=== PATIENT | male | born 1940 | race Caucasian/White ===

== ENCOUNTER 2018-06-30 05:08 | Inpatient (IN) ==
[2018-06-22 10:55] LABS: HEMATOCRIT 41.6 % (42.0-52.0); MCH 30.6 PG (27-31); MCHC 33.7 g/dL (33-37); MPV 10.2 FL (7.4-10.4); RBC 4.57 XMIL (4.7-6.1); RDW 13.6 % (11.5-14.5); WBC 9.56 X1000 (4.8-10.8)
[2018-06-22 11:20] LABS: CALCIUM 9.3 mg/dL (8.8-10.2); CREATININE 1.2 mg/dL (0.7-1.2); POTASSIUM 4.6 mmol/L (3.5-5.1)
[2018-06-30] MEDS ORDERED: KEFZOL 1 GM/D5W 1 GM/50 ML IVPB ONE (05:57)
[2018-06-30] MEDS ORDERED: LR 1,000 ML ONE (05:57)
[2018-06-30] MEDS ORDERED: DIPRIVAN 1% ONE (06:35)
[2018-06-30] MEDS ORDERED: SODIUM CHLORIDE 0.9% 10 ML ONE (06:38)
[2018-06-30] MEDS ORDERED: NORCURON ONE (06:38)
[2018-06-30] MEDS ORDERED: QUELICIN (DOSE) ONE (06:38)
[2018-06-30] MEDS ORDERED: XYLOCAINE-MPF 2% ONE (06:38)
[2018-06-30] MEDS ORDERED: INVANZ 1 GM/NS 1 GM/50 ML IVPB ONE (06:45)
[2018-06-30] MEDS ORDERED: EPHEDRINE ONE (07:31)
[2018-06-30] MEDS ORDERED: ZOFRAN ONE (07:41)
[2018-06-30] MEDS ORDERED: DILAUDID ONE (07:59)
[2018-06-30] MEDS ORDERED: OFIRMEV 1000 MG/ISOTONIC SOLN 1,000 MG/100 ML BOTTLE ONE (07:59)
[2018-06-30 08:09] LABS: URINE SOURCE CATH
[2018-06-30 08:17] LABS: BILIRUBIN URINE NEGATIVE (NEGATIVE); BLOOD URINE NEGATIVE (NEGATIVE); COLOR YELLOW; GLUCOSE URINE NEGATIVE (NEGATIVE); KETONE URINE NEGATIVE (NEGATIVE); LEUKOCYTES URINE NEGATIVE (NEGATIVE); NITRITE URINE NEGATIVE (NEGATIVE); PH URINE 5.5; PROTEIN URINE NEGATIVE (NEGATIVE); SP GRAVITY URINE 1.003; TURBIDITY URINE CLEAR (CLEAR); UR EPITHELIAL CELLS <10 /HPF (<10); URINE BACTERIA NEGATIVE /HPF; URINE RBC <10 /HPF (<10); URINE WBC <10 /HPF (<10); UROBILINOGEN URINE NORMAL (NORMAL)
[2018-06-30] MEDS ORDERED: ROBINUL ONE (09:42)
[2018-06-30] MEDS ORDERED: TORADOL ONE (10:13)
[2018-06-30] MEDS ORDERED: D5 1/2 NS + KCL 20 MEQ 1,000 ML ONE (10:14)
[2018-06-30] MEDS: MORPHINE IV PRN (11:43)
[2018-06-30] MEDS: D5 1/2 NS + KCL 20 MEQ 1,000 ML IV SCH ×2 (11:45→21:59)
--- NOTE | 2018-06-30 12:04 | OPERATIVE NOTE ---
PROCEDURE DATE: 06/30/2018 PREOPERATIVE DIAGNOSIS: Acute complicated sigmoid diverticulitis requiring resection and end- descending colostomy. POSTOPERATIVE DIAGNOSIS: Acute complicated sigmoid diverticulitis requiring resection and end- descending colostomy. PRINCIPLE PROCEDURE: Colostomy takedown with resection of a segment of colon. SURGEON: Roro Olea MD. CONVERTIBLE POWER SHOVEL OPERATOR: Truong Richardson MD. ANESTHESIA: General. ESTIMATED BLOOD LOSS: 100 mL. DRAINS: None. 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 He has regained his strength, appetite and health over the last year and he wanted a colostomy takedown. FINDINGS: We resected the area of colon that was within the soft tissue, left side of abdomen and the ostomy itself and performed an end-to-end EEA stapled anastomosis between the descending colon and the rectum. We felt the surgery went well. No other intraabdominal pathology was noted. DESCRIPTION OF PROCEDURE: Prior to presenting to a.m. admission surgery this morning he underwent a bowel prep yesterday. He was taken to the operating room, where he received general anesthesia, and was intubated. Whipple catheter tube was placed. He was placed in the [facility]. I closed his ostomy with a pursestring 2-0 Prolene stitch. We used an Ioban on the skin after it was prepped. He received IV Invanz prophylactically. I began the procedure by making elliptical incision which encompassed the left-sided ostomy with a 10 blade scalpel. Then I used cautery to dissect out the end-colostomy from the anterior abdominal wall. I then made my midline incision in the previous scar. It went around the umbilicus and down to the pubic bone. Again, I used the cautery to transect the soft tissue and I carefully entered the abdomen so as not to injure any of the bowel. I took time to lyse all adhesions between loops of small bowel. I removed all small bowel from the pelvis. I freed what remained of the ostomy up against the left anterior abdominal wall. I felt I had enough length of colon to bring it down to the rectum. I ran the entire small bowel. All adhesions were lysed using sharp dissection and the bowel was placed back in its anatomically correct position, and I brought the descending colon along the left side of the abdomen. I took time using a right angle and forceps and the cautery to clean the rectal stump which was easily identified. I then used a pursestring instrument and created a pursestring about 2 inches proximal to our ostomy site on the descending colon. I transected the ostomy and a segment of the colon using Walls scissors and the pursestring was proximal. I used Allis clamps to hold open the descending colon and I sized the colon and chose a 31 mm EEA stapler. I placed the EEA in our descending colon and tied the pursestring around it. Again, I took time to remove any soft tissue from around our EEA stapler. At this point, I stayed at the abdomen and Dr. Matthew Richardson went below and placed the EEA stapler into the anus and rectum and directed it to the stapled rectal stump. The spike was brought out, I mated the anvil and the spike and Dr. Richardson brought the anvil down to the EEA stapler and fired it. Our donuts were intact except it was thin on the descending colon side and I felt it was thin on the anterior wall of our EEA anastomosis and I reinforced that anterior wall with interrupted 3-[address] Richardson placed a rigid proctoscope into the rectum and blew air across our anastomosis and there was no air leak. I inspected the EEA anastomosis. It was felt to be intact. I felt I had good blood supply at the rectum and the descending colon. We felt there was no significant tension on our EEA anastomosis. We took time to thoroughly irrigate out the pelvis with warm irrigation. It was removed with suction. I placed the bowel back in the anatomically correct position and what was left of the omentum was placed over the surface of the bowel. I then closed the ostomy site in 2 layers. I closed the posterior fascia with a running #1 Maxon stitch and I closed the anterior fascia in the ostomy site. Again, with a running #1 Maxon stitch. I then closed the midline incision with a running #1 Maxon stitch. I thoroughly irrigated our subcutaneous tissue from both our incisions and then the skin was closed with a skin clip marine railway operator. Dressings were applied. We will leave the Whipple catheter tube. We did not leave an NG tube. Plans are for him to go the recovery room and then be hospitalized. I spoke with his family after the procedure. Dr. Matthew Richardson was present throughout the case. His presence was necessary for retraction and exposure. Also help with dissection and he placed the EEA stapler into the rectum while I was above so that we could do the EEA anastomosis. He was also present during closure of our incision sites. cc: Roro Olea MD
[2018-06-30] MEDS: TORADOL IV SCH ×2 (15:35→21:53)
[2018-06-30] MEDS: OFIRMEV 1000 MG/ISOTONIC SOLN 1,000 MG/100 ML BOTTLE IV SCH ×2 (15:36→21:54)
[2018-06-30] MEDS: LIPITOR PO SCH (21:53)
[2018-06-30] MEDS: PERIDEX MT SCH (21:54)
[2018-06-30] MEDS: TRAVATAN 0.004% OPH SOLN OPH SCH (21:55)
[2018-07-01] MEDS: OFIRMEV 1000 MG/ISOTONIC SOLN 1,000 MG/100 ML BOTTLE IV SCH ×4 (03:15→22:00)
[2018-07-01] MEDS: TORADOL IV SCH ×4 (03:15→22:00)
[2018-07-01] MEDS: ALDACTONE PO SCH (09:15)
[2018-07-01] MEDS: PRILOSEC PO SCH (09:16)
[2018-07-01] MEDS: ZIAC 5/6.25 MG PO SCH (09:16)
[2018-07-01] MEDS: FLOMAX PO SCH (09:16)
[2018-07-01] MEDS: IMDUR PO SCH (09:16)
[2018-07-01] MEDS: PERIDEX MT SCH ×2 (09:17→22:00)
[2018-07-01] MEDS: TRUSOPT 2% OPH SOLN OPH SCH (09:17)
[2018-07-01] MEDS: LASIX PO SCH (09:20)
[2018-07-01] MEDS: MORPHINE IV PRN (11:27)
[2018-07-01] MEDS: D5 1/2 NS + KCL 20 MEQ 1,000 ML IV SCH ×2 (12:07→12:08)
--- NOTE | 2018-07-01 17:06 | PROGRESS NOTE ---
DATE: 07/01/2018 SUBJECTIVE: Mr. Estrada is now postop day 1 from a colostomy takedown. Overall, I think he is doing well. He still has a Whipple catheter tube in. He is still receiving IV fluids and I have not fed him. OBJECTIVE: Abdomen: His midline incision is intact. His abdomen is mostly soft. His pain is appropriate for his midline incision. General: He is awake and cooperative. Vital signs: His heart rate is 67, blood pressure 112/65, O2 saturation 98%. His T-max was a 100.0 degrees. He is on no antibiotics. PLAN: Will begin clear liquids tomorrow and plan to discontinue his Whipple catheter tube. We did not get any laboratory data today and will follow his clinical course. cc: Roro Olea MD
[2018-07-01] MEDS: LIPITOR PO SCH (22:00)
[2018-07-01] MEDS: TRAVATAN 0.004% OPH SOLN OPH SCH (22:01)
[2018-07-02] MEDS: D5 1/2 NS + KCL 20 MEQ 1,000 ML IV SCH ×2 (02:51→17:17)
[2018-07-02] MEDS: OFIRMEV 1000 MG/ISOTONIC SOLN 1,000 MG/100 ML BOTTLE IV SCH ×4 (02:51→20:57)
[2018-07-02] MEDS: TORADOL IV SCH ×4 (02:51→20:58)
[2018-07-02] MEDS: IMDUR PO SCH (08:59)
[2018-07-02] MEDS: TRUSOPT 2% OPH SOLN OPH SCH (08:59)
[2018-07-02] MEDS: PRILOSEC PO SCH (08:59)
[2018-07-02] MEDS: ALDACTONE PO SCH (08:59)
[2018-07-02] MEDS: FLOMAX PO SCH (08:59)
[2018-07-02] MEDS: ZIAC 5/6.25 MG PO SCH (08:59)
[2018-07-02] MEDS: PERIDEX MT SCH ×2 (09:09→20:56)
[2018-07-02] MEDS: LASIX PO SCH (09:09)
[2018-07-02] MEDS: ULTRAM PO PRN (20:56)
[2018-07-02] MEDS: TRAVATAN 0.004% OPH SOLN OPH SCH (20:56)
[2018-07-02] MEDS: LIPITOR PO SCH (20:57)
[2018-07-03] MEDS: TORADOL IV SCH (03:04)
[2018-07-03] MEDS: OFIRMEV 1000 MG/ISOTONIC SOLN 1,000 MG/100 ML BOTTLE IV SCH (03:05)
[2018-07-03] MEDS: D5 1/2 NS + KCL 20 MEQ 1,000 ML IV SCH ×2 (03:05→09:03)
--- NOTE | 2018-07-03 07:48 | PROGRESS NOTE ---
DATE: 07/03/2018 SUBJECTIVE: Mr. Estrada is now postop day 3 from a colostomy takedown. We removed his Whipple catheter tube yesterday and he was able to void. He has tolerated some clear liquids. He has had some flatus. OBJECTIVE: His heart rate is 60, blood pressure 138/76, O2 saturation 99% nasal cannula O2. He is afebrile on no antibiotics. He has been good about getting up in a chair and even walking the halls. PLAN: We will advance his diet. We will decrease his IV fluids and plan not to restart an IV if it infiltrates. We will stop his Toradol and IV Tylenol and give him p.o. pain medicine, [place] 10 or Ultram. His diet is a heart healthy diet. cc: Roro Olea MD
[2018-07-03] MEDS: TRUSOPT 2% OPH SOLN OPH SCH (08:43)
[2018-07-03] MEDS: PRILOSEC PO SCH (09:01)
[2018-07-03] MEDS: ALDACTONE PO SCH (09:02)
[2018-07-03] MEDS: IMDUR PO SCH (09:02)
[2018-07-03] MEDS: ZIAC 5/6.25 MG PO SCH (09:02)
[2018-07-03] MEDS: PERIDEX MT SCH ×2 (09:02→20:02)
[2018-07-03] MEDS: FLOMAX PO SCH (09:02)
[2018-07-03] MEDS: LASIX PO SCH (09:02)
[2018-07-03] MEDS: TRAVATAN 0.004% OPH SOLN OPH SCH (20:03)
[2018-07-03] MEDS: ULTRAM PO PRN (20:03)
[2018-07-03] MEDS: LIPITOR PO SCH (20:03)
[2018-07-03] MEDS: NORCO-10 PO PRN (23:09)
[2018-07-04] MEDS: D5 1/2 NS + KCL 20 MEQ 1,000 ML IV SCH (04:23)
[2018-07-04] MEDS: IMDUR PO SCH (08:37)
[2018-07-04] MEDS: LASIX PO SCH (08:37)
[2018-07-04] MEDS: ALDACTONE PO SCH (08:37)
[2018-07-04] MEDS: PRILOSEC PO SCH (08:37)
[2018-07-04] MEDS: FLOMAX PO SCH (08:37)
[2018-07-04] MEDS: ZIAC 5/6.25 MG PO SCH (08:38)
[2018-07-04] MEDS: PERIDEX MT SCH (08:38)
[2018-07-04] MEDS: TRUSOPT 2% OPH SOLN OPH SCH (08:44)
[2018-07-04] MEDS ORDERED: LOVENOX SUBQ SCH (09:30)
[2018-07-04 10:57] LABS: AGAP 10; BUN 20 mg/dL (8-22); CALCIUM 9.1 mg/dL (8.8-10.2); CHLORIDE 100 mmol/L (98-107); COSMO 273; CREATININE 1.1 mg/dL (0.7-1.2); ESTIMATED GFR > 60; GLUCOSE 108 mg/dL (70-104); POTASSIUM 4.5 mmol/L (3.5-5.1); SODIUM 135 mmol/L (136-145); TCO2 25 mmol/L (25-35)
[2018-07-04 11:06] LABS: BASO# 0.03 X1000 (0.0-0.2); BASO% 0.3 % (0.0-0.8); EOS# 0.14 X1000 (0.0-0.7); EOS% 1.6 % (0.0-10.0); HEMATOCRIT 38.4 % (42.0-52.0); HEMOGLOBIN 12.9 g/dL (14.0-18.0); LYMPH# 1.07 X1000 (1.2-3.4); LYMPH% 12.3 % (20.5-51.1); MCH 30.6 PG (27-31); MCHC 33.6 g/dL (33-37); MCV 91.2 FL (81-99); MONO# 0.71 X1000 (0.11-0.59); MONO% 8.2 % (1.7-9.3); MPV 10.5 FL (7.4-10.4); NEUT# 6.75 X1000 (1.4-6.5); NEUT% 77.6 % (42.2-75.2); PLT 283 X1000 (130-400); RBC 4.21 XMIL (4.7-6.1); RDW 13.1 % (11.5-14.5)
[2018-07-04] MEDS: ULTRAM PO PRN (16:47)
[2018-07-05] MEDS: PERIDEX MT SCH ×2 (00:43→09:30)
[2018-07-05] MEDS: TRAVATAN 0.004% OPH SOLN OPH SCH (00:43)
[2018-07-05] MEDS: LIPITOR PO SCH (00:43)
[2018-07-05] MEDS: NORCO-10 PO PRN (00:44)
--- NOTE | 2018-07-05 03:19 | GENERAL SURGERY PROGRESS NOTE ---
DATE: 07/04/2018 SUBJECTIVE: Doing well. His bowels are functioning. Hemodynamically, he has been stable with no tachycardia. He is tolerating p.o. OBJECTIVE: Abdomen is soft. Incision is intact. Reviewed labs. White count is 8, hematocrit is 38. Creatinine is 1.1. ASSESSMENT AND PLAN: A 78-year-old gentleman status post colostomy reversal. He is on intravenous fluids. He is on his appropriate home medications and he is on prophylactic Lovenox. Plan for possible home tomorrow versus Friday. cc: MD Roro Cuevas MD
[2018-07-05] MEDS: IMDUR PO SCH (09:30)
[2018-07-05] MEDS: FLOMAX PO SCH (09:31)
[2018-07-05] MEDS: LASIX PO SCH (09:31)
[2018-07-05] MEDS: ALDACTONE PO SCH (09:31)
[2018-07-05] MEDS: PRILOSEC PO SCH (09:32)
[2018-07-05] MEDS: TRUSOPT 2% OPH SOLN OPH SCH (09:33)
[2018-07-05] MEDS: ZIAC 5/6.25 MG PO SCH (09:34)
[2018-07-05 11:30] VITALS: BP 112/68
--- NOTE | 2018-07-05 15:47 | GENERAL SURGERY PROGRESS NOTE ---
DATE: 07/05/2018 SUBJECTIVE: He is doing well. He had a bowel movement this morning. Pain is controlled. He is tolerating a diet. No fevers. No tachycardia. OBJECTIVE: Vital signs: Blood pressure 112/68, oxygen saturation is 97%. General: He is alert. Abdomen: Soft. Incision is intact. DIAGNOSTIC STUDIES: No new labs this morning, but they were appropriate yesterday. ASSESSMENT AND PLAN: A 78-year-old gentleman status post colostomy reversal by Dr. Olea. He is doing well. We will let him go home today. I have given him postoperative instructions. He will see Dr. Olea this week for staple removal. I have given him prescriptions for Weston, Colace, and Zofran. He will call with any problems. cc: MD Roro Cuevas MD
--- NOTE | 2018-07-17 04:45 | DISCHARGE SUMMARY ---
ADMISSION DATE: 06/30/2018 DISCHARGE DATE: 07/05/2018 ADMITTING DIAGNOSIS: Complicated diverticular abscess status post sigmoid colon resection with end colostomy. POSTOPERATIVE DIAGNOSIS: Complicated diverticular abscess status post sigmoid colon resection with end colostomy. PRINCIPAL PROCEDURE: Colostomy takedown 06/30/2018. DISCHARGE DISABILITY: Full. DISCHARGE MEDICATIONS: He is to return to his home medications. DISCHARGE DIET: Regular. DISCHARGE DISPOSITION: He will follow up in our outpatient offices. 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 He underwent a sigmoid colon resection with end colostomy and Channing's pouch. I followed him as an outpatient over the last year, and he wants his colostomy reversed. Prior to his presentation, he underwent a bowel prep at home. He presented on the day of surgery and underwent a colostomy takedown with a 31 mm EEA stapled anastomosis. No drains were left at the time of surgery. He did have a Whipple catheter tube in place. We did not use an NG tube and after surgery, he went to the recovery room and then to the [address] [place] [address] [facility]. We feel that his postoperative convalescence has been normal. We discontinued his Whipple catheter tube. On postop day 2, we were able to slowly advance his diet, and Dr. Matthew Richardson was covering for me over the weekend and discharged him to his home on 07/05/2018 under the care of his . At discharge, his wound was healing well. He was having some bowel activity. He was steady on his feet and able to ambulate in the ALLERGIES:, and was tolerating a diet. It was felt safe to discharge him home with followup in our outpatient offices in 7 days. cc: Roro Olea MD
== END 2018-07-05 14:17 | disposition home or self-care (01) | DRG 346 ==
LOC: SURHOLD 05:08 → 4N 08:18
PROVIDERS: ADMIT Surgery; ATTEND Surgery
CPT/HCPCS: 80048; 81001; 83735; 85025; 85027; 88304; 94761; 94799; A9270; C1751; J0131; J0330; J0690; J1170; J1335; J1650; J1885; J2270; J2405; J3480; J7120

== ENCOUNTER 2019-08-10 00:22 | Inpatient (IN) ==
[2019-08-10 01:46] LABS: BASO# 0.03 X1000 (0.0-0.2); BASO% 0.2 % (0.0-0.8); EOS% 0.8 % (0.0-10.0); HEMOGLOBIN 14.2 g/dL (14.0-18.0); IMM GRAN# 0.04 X1000 (0.0-0.04); IMM GRAN% 0.3 % (0.0-0.5); LYMPH# 1.62 X1000 (1.2-3.4); LYMPH% 12.8 % (20.5-51.1); MCH 29.8 PG (27-31); MCHC 33.8 g/dL (33-37); MCV 88.2 FL (81-99); MONO# 0.62 X1000 (0.11-0.59); MONO% 4.9 % (1.7-9.3); MPV 10.4 FL (7.4-10.4); NEUT# 10.27 X1000 (1.4-6.5); PLT 261 X1000 (130-400); RBC 4.76 XMIL (4.7-6.1); RDW 14.3 % (11.5-14.5); WBC 12.68 X1000 (4.8-10.8)
[2019-08-10 02:02] LABS: ALB/GLOB RATIO 1.3; CALCIUM 9.5 mg/dL (8.8-10.2); CREATININE 1.3 mg/dL (0.7-1.2); POTASSIUM 4.8 mmol/L (3.5-5.1); TOTAL BILIRUBIN 0.44 mg/dL (0.20-1.00); TOTAL PROTEIN 7.1 g/dL (6.3-8.3)
[2019-08-10] MEDS ORDERED: ZOFRAN IV ONE (03:39)
--- NOTE | 2019-08-10 03:39 | PROVIDER DOCUMENTATION ---
HPI-Abdominal Pain/GI Problem - General Chief Complaint: Abdominal Pain Stated Complaint: ABD PAIN Time Seen by Provider: 08/10/19 02:18 Source: patient Allergies/Adverse Reactions: Patient Allergies Allergy/AdvReac Type Severity Reaction Status Date / Time No Known Allergies Allergy Verified 08/10/19 05:33 Home Medications: Home Medication List Medication Instructions Recorded Confirmed Last Taken Type Aspirin 81 mg PO DAILY 06/08/13 08/10/19 06/27/18 08:00 History Atorvastatin Calcium [Lipitor] 40 mg PO QHS 03/14/15 08/10/19 06/29/18 22:00 History Multivitamin [Multivitamins] 1 each PO DAILY 06/04/16 08/10/19 06/30/18 05:00 History Travoprost (Benzalkonium) 1 drop OP QHS 06/04/16 08/10/19 06/30/18 05:00 History [Travatan 0.004% Eye Drop] Isosorbide Mononitrate [Isosorbide 30 mg PO DAILY 04/01/17 08/10/19 06/30/18 05:00 History Mononitrate ER] Ferrous Sulfate [Iron] 325 mg PO DAILY 09/03/17 08/10/19 06/30/18 05:00 History Omeprazole [Prilosec] 40 mg PO DAILY 09/03/17 08/10/19 06/29/18 08:00 History Tamsulosin [Flomax] 0.4 mg PO DAILY 06/22/18 08/10/19 06/29/18 22:00 History Bisoprolol [Zebeta] 5 mg PO DAILY 08/10/19 08/10/19 Unknown History Spironolactone [Aldactone] 12.5 mg PO DAILY 08/10/19 08/10/19 Unknown History - History of Present Illness-ABD Nature of Presenting Problems: Presents to the with complaints of abdominal pain diffusely and intractable nausea and vomiting. he states that he has had many abdominal surgeries in the past with a history of divertiuclitis s/p resection and anastamosis. He also has a hx of multiple hernias and repairs. He deneis any fevers. He states he has been passing a little bit of gas but not a lot of bowel. He denies any blood in emesis. Denies any dysuria. Review of Systems - Adult - REVIEW OF SYSTEMS - ADULT Constitutional: reports: see HPI Eyes: reports: no symptoms reported Ears, Nose, Mouth & Throat: reports: no symptoms reported Cardiovascular: reports: no symptoms reported Respiratory: reports: no symptoms reported Gastrointestinal: reports: see HPI, abdominal pain, constipation, nausea, vomiting. denies: diarrhea, rectal bleeding Genitourinary: reports: no symptoms reported, see HPI Musculoskeletal: reports: no symptoms reported Integumentary: reports: no symptoms reported Neurological: reports: no symptoms reported Psychiatric: reports: no symptoms reported Endocrine: reports: no symptoms reported Hematologic/Lymphatic: reports: no symptoms reported Allergic/Immunologic: reports: no symptoms reported Past History - Adult - PAST MEDICAL HISTORY-ADULT Review of Records: reports: Old Records Reviewed, Nursing Assessment Review, Medications Reviewed, Social history reviewed & non-contributory. Major Childhood Illnesses: reports: denies history Cardiovascular: reports: cardiac disease, CAD, HTN Respiratory: reports: denies history Gastrointestinal: reports: denies history Obstetrical/Gynecological: reports: denies history Genitourinary: reports: denies history Musculoskeletal: reports: denies history Neurological: reports: denies history Endocrine/Immune: reports: denies history Other Conditions: reports: cataract/glaucoma - PRIOR SURGERIES/PROCEDURES Surgical/Procedure History: reports: cardiac stent, orthopedic (extremity) - IMMUNIZATION STATUS Childhood Immunizations: See Nurse Assessment Flu Vaccine: See Nurse Assessment - FAMILY HISTORY Family History: reviewed, not pertinent Physical Exam-General - CONSTITUTIONAL General Appearance: alert, mild distress (uncomfortable appearing) - EYES Eyes: pink conjunctivae - HEAD, EARS, NOSE, MOUTH & THROAT HENMT: normocephalic/atraumatic - NECK Neck: supple, normal inspection - RESPIRATORY Respiratory: chest non-tender, lungs clear, normal breath sounds, no respiratory distress, no accessory muscle use - CARDIOVASCULAR Cardiovascular: normal peripheral pulses, regular rate, rhythm, no murmur - GASTROINTESTINAL (ABDOMEN) Abdominal Exam: abnormal bowel sounds (diminished bowel sounds), distended, tenderness (diffuse), other (scarring on abdomen with palpable hernias at the umbilicus, difficult to reduce) - LYMPHATIC Lymphatic: no adenopathy - MUSCULOSKELETAL Back Exam: normal inspection Extremity: normal range of motion, normal inspection - SKIN Integumentary: normal color, warm/dry - NEUROLOGIC Neurologic: grossly normal - PSYCHIATRIC Psych/Mental Status: normal mood/affect, oriented x 3 Progress - PLAN OF CARE/RESULTS Progress/Plan/Lab Results: Vital Signs - 8 hr 08/10/19 00:34 Temperature 97.7 F Pulse Rate 73 Respiratory Rate 18 Blood Pressure 112/75 O2 Sat by Pulse Oximetry 94 L Laboratory Results - last 24 hr 08/10/19 08/10/19 01:30 01:30 WBC 12.68 H RBC 4.76 Hgb 14.2 Hct 42.0 MCV 88.2 MCH 29.8 MCHC 33.8 RDW Std Deviation 14.3 Plt Count 261 MPV 10.4 Immature Gran % (Auto) 0.3 Neut % (Auto) 81.0 H Lymph % (Auto) 12.8 L [place] % (Auto) 4.9 Eos % (Auto) 0.8 Baso % (Auto) 0.2 Immature Gran # (Auto) 0.04 Neut # (Auto) 10.27 H Lymph # (Auto) 1.62 [place] # (Auto) 0.62 H Eos # (Auto) 0.10 Baso # (Auto) 0.03 Sodium 139 Potassium 4.8 Chloride 103 Carbon Dioxide 23 L Anion Gap 13 BUN 25 H Creatinine 1.3 H Estimated GFR/1.73 m2 54 BUN/Creatinine Ratio 19 Glucose 162 H Calculated Osmolality 285 Calcium 9.5 Total Bilirubin 0.44 AST 23 ALT 20 Alkaline Phosphatase 72 Total Protein 7.1 Albumin 4.0 Globulin 3.1 Albumin/Globulin Ratio 1.3 Amylase 62 Lipase 22 Orders Category Date Time Status NPO Diet 08/10/19 01:[address] ABDOMEN/PELVIS W/O CONTRAST [CT] Stat Exams 08/10/19 03:05 Ordered AMYLASE [CHEM] Stat Lab 08/10/19 01:30 Completed CBC WITH ELECTRONIC DIFF [HEME] Stat Lab 08/10/19 01:30 Completed COMPREHENSIVE METABOLIC PANEL [CHEM] Stat Lab 08/10/19 01:30 Completed LIPASE [CHEM] Stat Lab 08/10/19 01:30 Completed URINALYSIS W/POSS RFLX CULT [URINALYSIS] Stat Lab 08/10/19 01:37 Uncollected Result Diagrams: 08/11/19 06:25 08/11/19 06:25 - CT/MRI 1 CT Study: Abdomen (mid small bowel high grade obstruction. transition point not quite seen. Multiple hernias, epigastric midline abdominal hernias containing small bowel without obstruction. bilateral inguinal hernias, large hiatal hernia. mild diffuse colonic diverituclosis without diverituclitis.) - CONSULTS/PCP/HOSPITALIST Notification #1 *Consult/PCP/Hospitalist*: Dr Olea Time Discussed: 04:35 Consult Disposition: other (Admit to hosp, will see pt in consult) #2 Consult: Dr Ragland Time Discussed: 04:50 Consult Disposition: Admit (Accepted for admission) Departure - Departure Date of Disposition Decision: 08/11/19 Time of Disposition Decision: 04:50 DIAGNOSIS: Bowel obstruction, Abdominal hernia Disposition: ADMITTED INPATIENT 09 Certified Medical Emergency: Emergent Condition: Stable - Critical Care Note This patient required my direct & personal management of CC.: No Attestation - Physician/ ARABELLA Attestation Patient care was provided by Advanced Practice Provider:: No The physician spent face to face time with patient:: Yes Advanced Practice Provider documentation review:: Supervising physician onsite and consulted in the evaluation and care of this patient. The physician did have a face to face encounter with the patient.
[2019-08-10] MEDS ORDERED: PHENERGAN IM ONE (04:12)
[2019-08-10] MEDS ORDERED: MORPHINE IV ONE (04:12)
--- NOTE | 2019-08-10 05:57 | Diag Imaging Result Doc PS360 ---
EXAM: CHEST/ABD TUBE PLACEMENT HISTORY: NGT placement TECHNIQUE: Chest abdomen single view COMPARISON: 09/03/2017 FINDINGS: There is a nasogastric tube overlying the esophagus and stomach. No free air beneath the diaphragm. The stool throughout the colon. No definite abnormality in the lower lungs. IMPRESSION: The nasogastric tube appears to enter the stomach. Electronically signed by Pedro Luis Gilmore 08/10/2019 5:55 AM
[2019-08-10] MEDS ORDERED: NS 1,000 ML IV SCH (07:05)
[2019-08-10] MEDS ORDERED: ZOFRAN IV PRN (07:05)
--- NOTE | 2019-08-10 07:06 | HISTORY AND PHYSICAL ---
CHIEF COMPLAINT: Abdominal pain and nausea. HISTORY OF PRESENTING ILLNESS: A 79-year-old male with a history of coronary artery disease, PSVT, hypertension, hyperlipidemia, and CVA who had presented to the emergency department with a 1- day history of having nausea and abdominal pain. The patient states that he was not feeling well, and subsequently had come to the emergency department. In the ED, he was evaluated. He had imaging done which did show a small bowel obstruction. His case was discussed with General surgery who recommended admission for further evaluation and management. At the time of examination, patient denied any headache, fever, chills, chest pain, hemoptysis, or melena, but complained of abdominal pain and nausea. PAST MEDICAL HISTORY: Includes coronary artery disease. PSVT, hypertension, hyperlipidemia, diverticulosis, and CVA. PAST SURGICAL HISTORY: Coronary stent, left knee arthroscopy, cataract surgery, tonsillectomy, and colectomy. ALLERGIES: No known drug allergies. CURRENT MEDICATIONS: 1. Aspirin 81 mg p.o. daily. 2. Atorvastatin 40 mg p.o. at bedtime. 3. Bisoprolol HCT 5/6.25 one p.o. daily. 4. Ferrous sulfate 325 mg p.o. daily. 5. Folic Acid 1 mg p.o. daily. 6. Lasix 20 mg p.o. daily. 7. Conde 7.5 one p.o. q.6 hours. 8. Isosorbide mononitrate 30 mg p.o. daily. 9. Omeprazole 40 mg p.o. daily. 10. Spironolactone 25 mg p.o. daily. 11. Tamsulosin 0.4 mg p.o. daily. 12. Pravastatin eyedrops to eyes at night. SOCIAL HISTORY: No history of smoking, alcohol, or illicit drug use. FAMILY HISTORY: Positive for coronary disease in mother. REVIEW OF SYSTEMS: A 14 point Review of Systems as listed in HPI. Other systems negative. PHYSICAL EXAMINATION: GENERAL: Cooperative friendly male. He is resting more comfortably now. VITAL SIGNS: Temperature 97.7 degrees, pulse 73, respirations 18, and blood pressure 112/75. HEENT: Atraumatic and normocephalic. PERRLA. NECK: No masses. CHEST: Clear to auscultation. CARDIOVASCULAR: Regular rate and rhythm. ABDOMEN: Soft. Diffuse. Tenderness. EXTREMITIES: No edema. NEUROLOGIC: He is awake, alert, and oriented x3. : No bladder distention. SKIN: Warm. LABORATORIES AND STUDIES: WBCs 12.68, hemoglobin 14.2, hematocrit 42, and platelets 261,000. Sodium 139, potassium 4.8, chloride 103, CO2 is 23, BUN is 25, and creatinine is 1.3. Glucose 162. Abdominal CT shows small bowel obstruction. ASSESSMENT: A 79-year-old male with a history of coronary artery disease, hypertension, hyperlipidemia, CVA, who had presented to emergency department with a 1-day history of having abdominal pain and nausea. He was seen in the ED. He had imaging done which did show a small bowel obstruction. His case was discussed with General Surgery who recommended admission for further management. 1. Small bowel obstruction. 2. Hypertension. 3. Coronary artery disease. 4. Hyperlipidemia. PLAN: 1. We will admit patient to medical floor with telemetry. 2. We will keep patient NPO. 3. We will insert NG tube. 4. We will consult General Surgery. 5. We will give patient antiemetics and pain control as needed. 6. We will monitor blood pressure closely. 7. We will hold his home medications for now. 8. Place patient on DVT prophylaxis and SCD. 9. We will continue to follow and reassess, and make further recommendations based on patient's clinical course. cc: Beau Ragland MD
--- NOTE | 2019-08-10 08:11 | Diag Imaging Result Doc PS360 ---
EXAM: CT ABDOMEN/PELVIS W/O CONTRAST INDICATION: abd pain, leukocytosis TECHNIQUE: This exam was performed using automated exposure control, adjustment of mA or kV according to patient size, and/or use of iterative reconstruction technique. COMPARISON: 09/03/2017 FINDINGS: The gallbladder, liver, spleen, and adrenal glands are unremarkable. There is a small cyst at the anterior aspect of the left kidney. The kidneys are unremarkable, otherwise. The urinary bladder is unremarkable. There are small bilateral inguinal hernias that contain only fat. There is a tiny metallic clip at the base of the appendix. The appendix is unremarkable, otherwise. There is moderate uncomplicated diverticulosis coli. There is evidence of prior partial colectomy with a surgical staple line at the distal sigmoid colon. There are several moderately distended loops of small bowel containing fluid consistent with small bowel obstruction. Although an obvious focal transition point is not clearly identified, there is a changing caliber in the left lower quadrant where the small bowel normalizes in caliber over a longer segment. There are two new small ventral abdominal wall hernias in the supraumbilical region that each contain a very short segment of small bowel. However, they do not appear to be the cause of the obstruction. There is no evidence of bowel distention immediately adjacent to the hernias and there is no wall thickening here. There is a stable large hiatal hernia. No free abdominal gas or free fluid is appreciated. IMPRESSION: 1.Findings consistent with small bowel obstruction with a probable transition in the left lower quadrant. 2.Two small supraumbilical ventral abdominal wall hernias containing very short segments of small bowel. However, these do not appear to be causing the obstruction. 3.Other incidental/nonacute findings detailed above. Electronically signed by Ollie Barber 08/10/2019 8:09 AM
[2019-08-10] MEDS: D5 1/2 NS + KCL 20 MEQ 1,000 ML IV SCH (18:11)
[2019-08-10] MEDS: MORPHINE IV PRN (18:15)
[2019-08-10 18:37] LABS: URINE SOURCE CLEAN CATCH
[2019-08-10 18:40] LABS: BILIRUBIN URINE NEGATIVE (NEGATIVE); BLOOD URINE NEGATIVE (NEGATIVE); COLOR YELLOW; GLUCOSE URINE NEGATIVE (NEGATIVE); KETONE URINE NEGATIVE (NEGATIVE); LEUKOCYTES URINE NEGATIVE (NEGATIVE); NITRITE URINE NEGATIVE (NEGATIVE); PH URINE 7.5; PROTEIN URINE 50 mg/dL (NEGATIVE); TURBIDITY URINE CLEAR (CLEAR); UROBILINOGEN URINE NORMAL (NORMAL)
[2019-08-10 18:41] LABS: UR EPITHELIAL CELLS <10 /HPF (<10); URINE BACTERIA NEGATIVE /HPF; URINE RBC <10 /HPF (<10); URINE WBC <10 /HPF (<10)
--- NOTE | 2019-08-10 19:09 | CONSULTATION ---
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 He presented to our emergency department with abdominal distention, nausea, and vomiting. CT scan suggested small bowel obstruction. He was admitted by our hospitalist and we were asked to evaluate him. PRIMARY CARE PHYSICIAN: Nithin Sol MD. PAST MEDICAL HISTORY: 1. Cardiac disease. 2. Hypertension. 3. Cataract. 4. Glaucoma. 5. Orthopedic surgery. 6. Cardiac stent. MEDICATIONS: 1. Aspirin. 2. Aldactone. 3. Lipitor. 4. Vitamins. 5. Eyedrops. 6. Isosorbide. 7. Bisoprolol. 8. Hydrochlorothiazide. 9. Lasix. 10. Flomax. 11. Colace. 12. [place] p.r.n. ALLERGIES: No known drug allergies. SOCIAL HISTORY: He works as a preacher. He is and has children. He does not smoke. REVIEW OF SYSTEMS: A 14-point review of systems was performed and was essentially negative except for the History of Present Illness. FAMILY HISTORY: Reviewed with the patient and was noncontributory. PHYSICAL EXAMINATION: Vital signs: Temperature 97.7 degrees, pulse 73, blood pressure 112/75, O2 saturation 94%. General: Mr. Estrada is sitting in a chair. He has an NG tube in place. He has no jaundice. HEENT: No oral lesions. Satisfactory dentition. No cervical or supraclavicular lymphadenopathy. Heart: Regular rate. Lungs: Clear to auscultation and percussion bilaterally. Abdomen: Not tightly distended, but somewhat. There is no tenderness. He has a well-healed midline incision. No costovertebral tenderness. Rectal: Exam was not performed. Extremities: He does have palpable peripheral pulses. No peripheral edema. Neurological: No focal deficit. DIAGNOSTIC DATA: CT scan suggests small bowel obstruction. IMPRESSION: Small-bowel obstruction, status post sigmoid colon resection with end-colostomy and then colostomy takedown. PLAN: We will try to allow the small bowel obstruction to resolve on its own with conservative treatment, nasogastric tube, and intravenous fluids. I will repeat abdominal films in the morning. cc: Roro Olea MD
[2019-08-10] MEDS ORDERED: OFIRMEV 1000 MG/ISOTONIC SOLN 1,000 MG/100 ML BOTTLE IV ONE (20:41)
[2019-08-10] MEDS: PROTONIX IV SCH (22:14)
[2019-08-11] MEDS ORDERED: TYLENOL PR PRN (03:00)
--- NOTE | 2019-08-11 04:28 | EKG Report ---
Test Performed on : 08/11/2019 02:31:12 AM Test Reason : Evaluation 2nd degree heart block per telemetry Blood Pressure : / mmHG Vent. Rate : 090 BPM Atrial Rate : 090 BPM P-R Int : 282 ms QRS Dur : 078 ms QT Int : 372 ms P-R-T Axes : 038 048 036 degrees QTc Int : 455 ms Sinus rhythm. with 1st degree AV block. Otherwise normal ECG When compared with ECG of 03-SEP-2017 18:11, premature atrial complexes. are no longer present LA interval has increased Confirmed by Aakash Sol MD ([id number]) on 08/12/2019 9:02:58 PM
[2019-08-11] MEDS ORDERED: CHLORASEPTIC SPRAY MT PRN (05:15)
[2019-08-11] MEDS: D5 1/2 NS + KCL 20 MEQ 1,000 ML IV SCH ×3 (05:48→20:19)
[2019-08-11 07:17] LABS: BASO# 0.03 X1000 (0.0-0.2); BASO% 0.3 % (0.0-0.8); EOS# 0.05 X1000 (0.0-0.7); EOS% 0.5 % (0.0-10.0); HEMATOCRIT 42.1 % (42.0-52.0); HEMOGLOBIN 13.8 g/dL (14.0-18.0); LYMPH% 15.6 % (20.5-51.1); MCH 29.5 PG (27-31); MCHC 32.8 g/dL (33-37); MONO# 0.84 X1000 (0.11-0.59); MONO% 8.7 % (1.7-9.3); MPV 10.5 FL (7.4-10.4); NEUT# 7.21 X1000 (1.4-6.5); NEUT% 74.9 % (42.2-75.2); PLT 221 X1000 (130-400); RBC 4.68 XMIL (4.7-6.1); RDW 14.6 % (11.5-14.5); WBC 9.63 X1000 (4.8-10.8)
[2019-08-11 07:33] LABS: CALCIUM 8.7 mg/dL (8.8-10.2); CREATININE 1.3 mg/dL (0.7-1.2); MAGNESIUM 2.1 mg/dL (1.5-2.7); PHOSPHORUS 2.1 mg/dL (2.7-4.5); POTASSIUM 4.6 mmol/L (3.5-5.1)
--- NOTE | 2019-08-11 08:33 | PROGRESS NOTE ---
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 He is hospital day 2 after presenting with a small bowel obstruction probably related to intraabdominal adhesions. He has been treated with NPO, NG tube, IV fluids. His white blood cell count is normal. On exam today his abdomen is distended but not tightly so. He states that he has had some flatus but no bowel movement. His heart rate is 83, blood pressure 109/70, O2 saturation 95%. He has no work of breathing. Temperature 99.5 degrees. He is on no antibiotics. His BUN and creatinine are 20 and 1.3. He is on IV fluids. We are awaiting an abdominal film this morning. I might placed some Gastrografin down the NG tube to see if it can help with his small-bowel obstruction and see if the goes through the entire small bowel. We will try to let this resolve conservatively if possible. cc: Roro Olea MD
--- NOTE | 2019-08-11 09:19 | Diag Imaging Result Doc PS360 ---
EXAM: ABDOMEN FLAT/UPRIGHT 08/11/2019 HISTORY: sbo TECHNIQUE: Flat and upright abdomen COMMENT: There is some stool in the colon. There is no evidence of bowel obstruction organomegaly or mass. There is an NG tube with its tip in the stomach. Compared to 08/10/2019 there is less stool in the colon. IMPRESSION: No evidence of obstruction. Electronically signed by Enrique Osuna 08/11/2019 9:16 AM
[2019-08-11] MEDS ORDERED: SODIUM PHOSPHATE 40 MMOL in NS 250 ML IV ONE (10:04)
--- NOTE | 2019-08-11 11:57 | PROGRESS NOTE ---
DATE: 08/11/2019 SUBJECTIVE: The patient reports feeling fine. He was passing gases, although no bowel movements yet. The x-ray from this morning shows no obstruction on the abdominal x-ray. OBJECTIVE: Vital Signs: Temperature 99.8 degrees, heart rate 81, respiratory rate 20, blood pressure 134/58, O2 saturation 95% on room air. General examination: This is a 79-year-old male, lying in bed in no acute distress. Cardiovascular exam: S1, S2 heard. No murmurs, gallops, or rubs. Regular rate and rhythm. Respiratory exam: Clear bilaterally to auscultation. No work of breathing or using accessory muscles. Abdomen: Soft. A little bit distended. Nontender to palpation. Bowel sounds present. No organomegaly. Extremities: No clubbing, cyanosis, or edema. Peripheral pulses present in both legs. Neurological exam: Patient alert and oriented x3. Moves 4 extremities. LABORATORY DATA: CBC is okay. The BMP showed creatinine 1.3, mildly elevated with phosphorus 2.1. ASSESSMENT AND PLAN: 1. Small bowel obstruction. Apparently that condition is resolved. So, at this point I prefer to go ahead and try a clear liquid. If he tolerates, then we can pull out the nasogastric tube. 2. Hypertension. Blood pressure is under control. We will continue with the same medications. 3. Coronary artery disease. The patient is not complaining of any chest pain. We will continue to monitor. 4. Hyperlipidemia. Will continue home medications. 5. Disposition: Following the lead from General Surgery. cc: Nabeel Sanabria MD
[2019-08-11] MEDS: MORPHINE IV PRN (12:22)
[2019-08-11] MEDS: PROTONIX IV SCH (20:20)
[2019-08-11] MEDS: SODIUM CHLORIDE 0.9% INJ SCH (20:20)
[2019-08-12 07:47] LABS: CALCIUM 8.6 mg/dL (8.8-10.2); CREATININE 1.3 mg/dL (0.7-1.2); MAGNESIUM 1.7 mg/dL (1.5-2.7); PHOSPHORUS 1.7 mg/dL (2.7-4.5); POTASSIUM 3.9 mmol/L (3.5-5.1)
[2019-08-12] MEDS: D5 1/2 NS + KCL 20 MEQ 1,000 ML IV SCH (08:36)
--- NOTE | 2019-08-12 11:24 | Diag Imaging Result Doc PS360 ---
EXAM: ABDOMEN FLAT/UPRIGHT 08/12/2019 HISTORY: sbo TECHNIQUE: Flat and upright abdomen COMMENT: There is some stool in the rectum. This was also the case at the time the previous study of 08/11/2019. There is a distended small bowel loop in the left abdomen. There are air-fluid levels in the left abdomen. The dilatation of the small bowel loop is worse than on the previous study. The stomach is not distended. There is no evidence of organomegaly or mass. There are air bronchograms in the right lower lobe. This was apparently not the case on 08/10/2019. IMPRESSION: 1. Early small bowel obstruction versus ileus. 2. Right lower lobe pneumonia. Electronically signed by Enrique Osuna 08/12/2019 11:21 AM
[2019-08-12] MEDS ORDERED: VANCOMYCIN IV PER PHARMACY MISC SCH (13:00)
[2019-08-12] MEDS ORDERED: DIPRIVAN 1% ONE (13:32)
[2019-08-12] MEDS ORDERED: XYLOCAINE-MPF 2% ONE (13:32)
[2019-08-12] MEDS ORDERED: QUELICIN (DOSE) ONE (13:32)
[2019-08-12] MEDS ORDERED: NORCURON ONE (13:33)
[2019-08-12] MEDS ORDERED: STERILE WATER INJ. ONE (13:33)
[2019-08-12] MEDS ORDERED: ROBINUL ONE (13:35)
[2019-08-12] MEDS ORDERED: VANCOMYCIN 2,350 MG in NS 500 ML IV ONE (14:00)
[2019-08-12] MEDS: ZOSYN 4.5 GM in NS 100 ML IV SCH ×2 (15:00→20:46)
--- NOTE | 2019-08-12 17:38 | PROGRESS NOTE ---
DATE: 08/12/2019 HISTORY: Mr. Estrada has had previous abdominal surgery. He has had a colon resection for diverticulitis, colostomy and then a colostomy takedown. He is admitted with a small bowel obstruction. He has been treated conservatively with IV fluids and NG tube and he has had multiple bowel movements over the last two days with some gas. His abdomen does remain distended. His flat plate abdominal film is abnormal with a dilated loop of small bowel, left side of abdomen. This afternoon I placed 100 mL of Gastrografin through his NG tube. Will clamp it. Will get a film in about four hours and see how it is getting through the bowel. This Gastrografin may be diagnostic and therapeutic. He knows and the nurses know that if he gets nauseated to unclamp the NG tube. We will try to leave it clamped overnight. He continues to receive IV fluids. He may be diagnosed with pneumonia. He is on antibiotics for that. cc: Roro Olea MD
--- NOTE | 2019-08-12 17:55 | PROGRESS NOTE ---
DATE: 08/12/2019 INTERVAL HISTORY: The patient still with NG tube, but no further nausea or vomiting. Fever overnight up to 102.2. Imaging suggestive of pneumonia. Patient does endorse some nonproductive cough, but no current dyspnea. REVIEW OF SYSTEMS: Twelve point review of systems negative as per interval history. LABORATORY: Sodium 135, potassium 3.9, BUN 15, creatinine 1.3, glucose 148, and lactate 0.9. IMAGING: Abdomen flat and upright continued early small-bowel obstruction versus ileus and right lower lobe pneumonia. OBJECTIVE: Vital Signs: T-max 102.2 degrees, pulse 103, respirations 16, blood pressure 135/70, and O2 saturation 94% on room air next. General: No acute distress. Vitals: As above. HEENT: Normocephalic, atraumatic. Moist mucous membranes. No cervical adenopathy. Cardiovascular: Minimally tachycardic, but regular. No murmurs noted. Pulmonary: Slight bibasilar crackles right greater than left. Otherwise, clear to auscultation bilaterally. Abdomen: Soft, nondistended, and nontender. Bowel sounds decreased but present. Extremities: Peripheral pulses intact. No clubbing or cyanosis. Neurologic: Cranial nerves grossly intact. No focal deficits identified. Psychiatric: Normal mood and affect. Awake, alert, and oriented x3. ASSESSMENT AND PLAN: 1. Small bowel obstruction. The patient is still with NG tube. Symptomatically, much improved, but imaging looks like he still has a pretty good small bowel obstruction. We will let him stay on some sips of water, but will not advance his diet yet. Surgery on board. If he continues to do well, he may be able to clamp and/or pull his NG tube tomorrow. 2. Sepsis due to pneumonia. Source of fever was initially uncertain but imaging showing right lower lobe pneumonia. Patient started on vancomycin and Zosyn because of recent hospitalization. The patient fairly minimally symptomatic though so if he does well, we will hopefully be able to transition to oral antibiotics in a day or 2 if his small-bowel obstruction also improves. 3. Hypertension, some occasional mild elevations but nothing significant. We will monitor and likely restart home medications once he is taking p.o. reliably. 4. Hyperlipidemia. Restart statin once he is able to take p.o. 5. GERD, on IV Protonix. We will transition to p.o. once he is able to take medicines by mouth.
--- NOTE | 2019-08-12 20:35 | Diag Imaging Result Doc PS360 ---
FLAT/UPRIGHT ABD/1 VIEW CHEST - 08/12/2019 8:19 PM INDICATION: follow gastrograffin. R/O SBO. TECHNIQUE: COMPARISON: 11:09 AM FINDINGS: Stable nasogastric tube in the stomach. The chest remains clear. Oral contrast fills the colon and rectum. No definite bowel obstruction. No free air. IMPRESSION: Negative for bowel obstruction. Electronically signed by Garrick Gunn 08/12/2019 8:32 PM
[2019-08-12] MEDS: PROTONIX IV SCH (20:46)
[2019-08-13] MEDS: ZOSYN 4.5 GM in NS 100 ML IV SCH ×4 (03:29→22:09)
[2019-08-13] MEDS: D5 1/2 NS + KCL 20 MEQ 1,000 ML IV SCH ×4 (03:29→19:42)
[2019-08-13 07:50] LABS: CREATININE 1.4 mg/dL (0.7-1.2); PHOSPHORUS 1.9 mg/dL (2.7-4.5); POTASSIUM 3.5 mmol/L (3.5-5.1)
--- NOTE | 2019-08-13 08:36 | Diag Imaging Result Doc PS360 ---
FLAT/UPRIGHT ABD/1 VIEW CHEST - 08/13/2019 INDICATION: follow gastrograffin. R/O SBO. TECHNIQUE: COMPARISON: 08/12/2019 FINDINGS: Stable nasogastric tube in good position the stomach. The chest is clear. There is no contrast visible throughout the GI tract. There is a nonobstructive bowel gas pattern. No free air or abnormal calcifications. IMPRESSION: Negative exam. No obstruction. Electronically signed by Garrick Gunn 08/13/2019 8:34 AM
--- NOTE | 2019-08-13 16:34 | PROGRESS NOTE ---
DATE: 08/13/2019 SUBJECTIVE: Mr. Jerome Estrada was given Gastrografin yesterday through the NG tube and has gone into his colon. He has had bowel activity and gas and we removed his NG tube today. We will begin giving him clear liquids. One of his chest x-rays suggested pneumonia. He has had a recent fever and he is on antibiotics. OBJECTIVE: His heart rate is 68, blood pressure 99/62, O2 saturation 94%. He is afebrile. His BUN and creatinine are 17 and 1.4. There has not been a recent CBC. PLAN: We will advance his diet as tolerated. Dr. Crispin Sr is on for our group this weekend. cc: Roro Olea MD
--- NOTE | 2019-08-13 16:44 | PROGRESS NOTE ---
DATE: 08/13/2019 INTERVAL HISTORY: Still some low-grade fevers overnight, but appears to be trending down. Still a little bit nonproductive cough, but no dyspnea at this point. No further nausea or vomiting. No new complaints. No acute good. No other acute events overnight. REVIEW OF SYSTEMS: Twelve point review of systems negative except as per interval history. LABS: Sodium 139, potassium 3.5, BUN 17, creatinine 1.4, glucose 154. IMAGING: Abdominal x-ray with apparently resolved small bowel obstruction. VITALS: T-max 100.7 degrees, pulse 68, respirations 16, blood pressure 99/62, O2 saturation 94% on room air. PHYSICAL EXAMINATION: General: No acute distress. Vitals: As above. HEENT: Normocephalic, atraumatic. Moist mucous membranes. NG tube in place but clamped. Cardiovascular: Regular rate and rhythm. No murmurs noted. Pulmonary: Minimal bibasilar crackles, right greater than left, improved from previous. Otherwise clear to auscultation bilaterally. Abdomen: Soft, nontender, minimally distended. Bowel sounds remain a little decreased but definitely present and improved from previous. Extremities: Peripheral pulses intact. No clubbing or cyanosis. Neurologic: Cranial nerves grossly intact. No focal deficits. Psychiatric: Normal mood and affect. Awake, alert, oriented x3. ASSESSMENT AND PLAN: 1. Small bowel obstruction. The patient NG tube clamped, starting on clear liquids. Doing well with that so far. We will see how he does and hopefully be able to advance over the next day or 2. Surgery on board and assisting. 2. Sepsis due to pneumonia. Source of his fever was initially uncertain but imaging showed right lower lobe pneumonia. Started on vancomycin and Zosyn because of recent hospitalization. Still some low-grade fevers overnight, but appears to be trending down and patient's symptoms fairly minimal. Hopefully over the next day or 2, his the fevers will go away and will be able to transition to something by mouth, possibly doxycycline. 3. Hyperlipidemia. Will restart statin once he is reliably able to take p.o. 4. GERD, currently on IV Protonix. Will transition back to p.o. once he is able to take medication by mouth reliably. 5. Hyperglycemia, fairly mild, may be reactive. No known history of diabetes. We will place him on pattern blood sugars and check an A1c. 6. History of stroke. Restart aspirin and statin once able to take p.o. 7. Benign prostatic hypertrophy. Restart tamsulosin once able to take p.o..
[2019-08-13] MEDS ORDERED: VANCOMYCIN 1,500 MG in NS 250 ML IV SCH (18:00)
[2019-08-13] MEDS: SODIUM CHLORIDE 0.9% INJ SCH (20:33)
[2019-08-13] MEDS: PROTONIX IV SCH (20:33)
[2019-08-14] MEDS: ZOSYN 4.5 GM in NS 100 ML IV SCH ×4 (00:37→18:05)
[2019-08-14] MEDS: D5 1/2 NS + KCL 20 MEQ 1,000 ML IV SCH ×2 (06:37→13:56)
[2019-08-14 07:09] LABS: HEMOGLOBIN A1C 5.8 % (4.8-6.0)
[2019-08-14 07:20] LABS: CALCIUM 8.5 mg/dL (8.8-10.2); CREATININE 1.3 mg/dL (0.7-1.2); POTASSIUM 3.7 mmol/L (3.5-5.1)
--- NOTE | 2019-08-14 08:25 | GENERAL SURGERY PROGRESS NOTE ---
DATE: 08/14/2019 SUBJECTIVE: The patient is doing better. He denies abdominal pain, nausea, or vomiting. He has been tolerating a clear liquid diet and passing gas. OBJECTIVE: Vital Signs: He is afebrile. Vital signs are stable. General: He is awake, alert, oriented x3. No acute distress. Gastrointestinal: Soft, nontender, nondistended. Good bowel sounds. Of note, he has had a bowel movement as well. ASSESSMENT AND PLAN: A 79-year-old male with small bowel obstruction appears to be resolving. We will advance his diet today and anticipate discharge home tomorrow. cc: Crispin Sr MD
--- NOTE | 2019-08-14 15:52 | PROGRESS NOTE ---
DATE: 08/14/2019 SUBJECTIVE: The patient seems to be feeling better. He does have generalized weakness. He is passing some gas and he is having bowel movements. As per the patient, he had a couple bowel movements yesterday night that were really good. His diet has been advanced. I will wait for the final recommendations of the Surgery Department tomorrow. OBJECTIVE: Vital Signs: Temperature 98.2 degrees, pulse 91, respiratory rate 20, blood pressure 139/79, oxygen saturation 98 on room air. HEENT: Head normocephalic, no trauma. PERRLA. Neck: Supple. No JVD. No masses. Central trachea. Chest: Clear to auscultation. No wheezing. No rales. Some crepitus at the bases mostly on the right side. Abdomen: Soft, protuberant, bowel sounds decreased but present. Neurological examination: The patient is awake, alert. He is oriented x3. No focal deficit but generalized weakness. LABORATORY: Sodium 137, potassium 3.7, chloride 108, bicarbonate 18, BUN 16, creatinine 1.3, glucose 132, calcium 8.5, phosphorus 2. ASSESSMENT AND PLAN: 1. Small bowel obstruction, it looks like his diet has been advanced to a full liquid diet, he seems to be having bowel movements. Will continue to monitor and following the recommendations of Surgery Department. 2. Sepsis due to pneumonia in the right lower lobe, continue with same management for now, I will switch the vancomycin to Zyvox due to his chronic kidney disease. 3. Chronic kidney disease. I will monitor for now, seems to be at baseline. 4. Hyperlipidemia. We will restart statins once he is reliable able to take p.o. 5. Gastroesophageal reflux disease. Continue with IV Protonix. 6. Hyperglycemia. His hemoglobin A1c is 5.8. Based on diagnosis criteria, he has prediabetes, will monitor for now. 7. History of stroke. Aware. 8. Benign prostatic hypertrophy. We will continue with tamsulosin once this patient is able to take p.o. cc: Tha Traore MD
[2019-08-14] MEDS: ZYVOX 600 MG/D5W 600 MG/300 ML IVPB IV SCH (19:18)
[2019-08-14] MEDS: PROTONIX IV SCH (22:13)
[2019-08-14] MEDS: SODIUM CHLORIDE 0.9% INJ SCH (22:13)
[2019-08-15] MEDS: ZOSYN 4.5 GM in NS 100 ML IV SCH ×4 (00:46→18:00)
[2019-08-15] MEDS: D5 1/2 NS + KCL 20 MEQ 1,000 ML IV SCH ×2 (00:50→08:05)
[2019-08-15 06:36] LABS: BASO# 0.02 X1000 (0.0-0.2); BASO% 0.2 % (0.0-0.8); EOS# 0.16 X1000 (0.0-0.7); EOS% 1.6 % (0.0-10.0); HEMATOCRIT 38.2 % (42.0-52.0); IMM GRAN# 0.05 X1000 (0.0-0.04); IMM GRAN% 0.5 % (0.0-0.5); LYMPH# 1.92 X1000 (1.2-3.4); LYMPH% 18.9 % (20.5-51.1); MCH 29.7 PG (27-31); MCV 87.2 FL (81-99); MONO# 0.79 X1000 (0.11-0.59); MONO% 7.8 % (1.7-9.3); MPV 10.6 FL (7.4-10.4); NEUT# 7.22 X1000 (1.4-6.5); PLT 252 X1000 (130-400); RBC 4.38 XMIL (4.7-6.1); RDW 13.9 % (11.5-14.5); WBC 10.16 X1000 (4.8-10.8)
[2019-08-15 06:45] LABS: CALCIUM 8.2 mg/dL (8.8-10.2); CREATININE 1.2 mg/dL (0.7-1.2); POTASSIUM 3.6 mmol/L (3.5-5.1)
[2019-08-15] MEDS: ZYVOX 600 MG/D5W 600 MG/300 ML IVPB IV SCH ×2 (08:05→20:33)
--- NOTE | 2019-08-15 14:24 | PROGRESS NOTE ---
DATE: 08/15/2019 SUBJECTIVE: The patient seems to be feeling better. He is having some wheezing bilaterally today. He is passing gas and having bowel movements. He seems to be weak, so I have requested Physical Therapy and Occupational Therapy to evaluate this patient. His diet has been advanced today again. OBJECTIVE: Vital Signs: Temperature 98.3 degrees, pulse 83, respiratory rate 16, blood pressure 120/84, oxygen saturation 98 on room air. HEENT: Head normocephalic. No trauma. PERRLA. Neck: Supple. No JVD. No masses. Central trachea. Chest: Clear to auscultation. Some wheezing bilaterally, expiratory wheezing. Some crepitus at the bases, mostly on the right side. Abdomen: Soft, protuberant. Positive bowel sounds. Extremities: No edema, no clubbing, no cyanosis. Neurological: The patient is awake, alert. He is oriented x3. He has generalized weakness. LABORATORY DATA: WBC 10.1, hemoglobin 13, hematocrit 38.2, platelets 252,000. Sodium 137, potassium 3.6, chloride 107, bicarbonate 18, BUN 12, creatinine 1.2, glucose 130, calcium 8.2. ASSESSMENT AND PLAN: 1. Small-bowel obstruction, resolving. His diet has been advanced today again. He seems to be tolerating that. He is having bowel movements. 2. Sepsis due to pneumonia in the right lower lobe. I will continue with the same management for now. He is wheezing today, so I will add breathing treatment. 3. Chronic kidney disease. Will monitor. This seems to be his baseline. 4. Hyperlipidemia. I will restart his statins. 5. Hyperglycemia. His hemoglobin A1c is 5.8. Based on diagnosis criteria, he has prediabetes. Will monitor for now. 6. History of stroke. Aware. 7. Benign prostatic hypertrophy. I will put this patient back on tamsulosin as well. cc: Tha Traore MD
[2019-08-15] MEDS: DUONEB (A & A) INH SCH ×3 (16:12→23:35)
--- NOTE | 2019-08-15 17:35 | GENERAL SURGERY PROGRESS NOTE ---
DATE: 08/15/2019 SUBJECTIVE: The patient is doing well. He denies abdominal pain, nausea, vomiting. He is having bowel movements. He is tolerating his diet. OBJECTIVE: Vital signs: He is afebrile. Vital signs are stable. General: He is awake, alert, no acute distress. Gastrointestinal: Soft, nontender, nondistended. ASSESSMENT AND PLAN: A 79-year-old male with resolved small-bowel obstruction. There are no acute surgical plans. cc: Crispin Sr MD
[2019-08-15] MEDS ORDERED: LIPITOR PO SCH (21:00)
[2019-08-16] MEDS: ZOSYN 4.5 GM in NS 100 ML IV SCH ×2 (00:11→05:47)
[2019-08-16] MEDS: DUONEB (A & A) INH SCH ×3 (03:20→11:51)
[2019-08-16] MEDS: D5 1/2 NS + KCL 20 MEQ 1,000 ML IV SCH (05:00)
[2019-08-16] MEDS: PRILOSEC PO SCH ×2 (05:47→09:34)
--- NOTE | 2019-08-16 06:45 | Diag Imaging Result Doc PS360 ---
CHEST-PORTABLE - 08/16/2019 INDICATION: dyspnea COMPARISON: 08/13/2019 FINDINGS: The nasogastric tube has been removed. There is probably a large hiatal hernia. There is some ill-defined infiltrate or atelectasis at the right lung base. The left lung appears clear. Heart size is top normal. IMPRESSION: Ill-defined infiltrate or atelectasis at the right lung base. Electronically signed by Garrick Gunn 08/16/2019 6:43 AM
[2019-08-16 07:32] LABS: BASO# 0.02 X1000 (0.0-0.2); BASO% 0.2 % (0.0-0.8); EOS# 0.15 X1000 (0.0-0.7); EOS% 1.8 % (0.0-10.0); HEMATOCRIT 34.2 % (42.0-52.0); HEMOGLOBIN 11.4 g/dL (14.0-18.0); IMM GRAN# 0.03 X1000 (0.0-0.04); IMM GRAN% 0.4 % (0.0-0.5); LYMPH# 1.02 X1000 (1.2-3.4); LYMPH% 12.4 % (20.5-51.1); MCH 29.2 PG (27-31); MCHC 33.3 g/dL (33-37); MCV 87.7 FL (81-99); MONO# 0.73 X1000 (0.11-0.59); MONO% 8.8 % (1.7-9.3); MPV 10.6 FL (7.4-10.4); NEUT% 76.4 % (42.2-75.2); PLT 245 X1000 (130-400); RDW 13.9 % (11.5-14.5); WBC 8.25 X1000 (4.8-10.8)
[2019-08-16 07:50] LABS: CALCIUM 8.3 mg/dL (8.8-10.2); CREATININE 1.2 mg/dL (0.7-1.2); POTASSIUM 3.7 mmol/L (3.5-5.1)
[2019-08-16] MEDS ORDERED: CENTRUM SILVER PO SCH (09:00)
[2019-08-16] MEDS ORDERED: FLOMAX PO SCH (09:00)
[2019-08-16] MEDS: ZYVOX 600 MG/D5W 600 MG/300 ML IVPB IV SCH (09:33)
[2019-08-16 11:24] VITALS: BP 123/65
--- NOTE | 2019-08-16 19:01 | DISCHARGE SUMMARY ---
ADMISSION DATE: 08/10/2019 DISCHARGE DATE: 08/16/2019 DISCHARGE DIAGNOSES: 1. Small bowel obstruction, resolved. 2. Sepsis due to pneumonia. 3. Right lower lobe pneumonia. 4. Chronic kidney disease. 5. Hyperlipidemia. 6. Hyperglycemia. 7. History of stroke. 8. Benign prostatic hypertrophy. PROCEDURE PERFORMED: 1. Abdomen and pelvis CT scan dated 08/10/2019, impression: Small bowel obstruction with a probably transition in the left lower quadrant. Two small supraumbilical ventral abdominal wall hernia containing very short segments of small bowel. However, these do not appear to be causing the obstruction. 2. Abdomen x-ray dated 08/11/2019, impression: No evidence of obstruction. 3. Abdomen x-ray dated 08/12/2019, impression: Early small-bowel obstruction versus ileus, right lower lobe pneumonia. 4. Abdominal x-ray dated 08/12/2019, impression: Negative bowel obstruction. 5. Abdomen x-ray dated 08/13/2019, impression: Negative exam for obstruction. 6. Chest x-ray dated 08/16/2019, impression: Ill-defined infiltrate or atelectasis in the right lung base. HOSPITAL COURSE: A 79-year-old, male with a past medical history of coronary artery disease, PSVT, hypertension, hyperlipidemia, CVA, who presented to the emergency department with a 1-day history of having nausea and abdominal pain. He was admitted on 08/10/2019. The patient states that he was not feeling well and came to the emergency department. He was evaluated and had a CT scan that showed small bowel obstruction that was discussed with General surgery who recommended admission for further evaluation and management. He denied at the moment of admission, fever, chills, chest pain, hemoptysis, melena but complicated complained of abdominal pain and nausea. We noticed that at the beginning of this hospitalization though his temperature was normal but 1 day later he was having fever. We did a new x-ray and we found out that this patient had pneumonia. He was placed on antibiotic and then he started feeling much better. At the beginning of this hospitalization also this patient was not placed on oxygen and he never needed oxygen. His pulse was has been elevated on and off, but he seemed to be having this problem before, and like I mentioned before he has a history of PSVT. He had a couple episodes where his blood pressure drops so the blood pressure medications were stopped for a little bit, then he started passing gas and having more bowel movements. His diet has been advanced slowly. No more fever. No more symptoms. He is coughing just a little bit. His cough improved a lot. Today, he wants to go home and I do feel this patient is doing much better. His white blood cell count is normal. Upon admission was 12, and his BMP is basically at baseline. He will be discharged home. I talked to the patient and I told him that he cannot drive at least for a few days. His was at the bedside. He wants to go back to work, but he seems to be weak and he refused to go to a rehab center, so I recommended to go home and get his strength back with home health. The patient seems to understand and agree with the plan. He will be discharged with antibiotics. DISCHARGE PHYSICAL EXAMINATION: Vital signs: Temperature 97.9 degrees, pulse 99, respiratory rate 20, blood pressure 123/65. Oxygen saturation 96 on room air. HEENT: Head normocephalic. No trauma. PERRLA. Neck: Supple. No JVD. No masses. Central trachea. Chest: Some crepitus at the right base. Abdomen: Soft, nontender, nondistended. No hepatosplenomegaly. Positive bowel sounds. Extremities: No edema, no clubbing, no cyanosis. Neurological: The patient is awake, alert, he is oriented x3. No focal deficits. LABORATORY: WBC 8.2, hemoglobin 11.4, hematocrit 34.2, platelet 245,000. Sodium 139, potassium 3.7, chloride 107, bicarbonate 21, BUN 9, creatinine 1.2 glucose 128, calcium 8.3. DISCHARGE MEDICATIONS: 1. Ventolin HFA 2 puff inhaler every 2 to 4 hours as needed for shortness of breath. 2. Augmentin 875/125 mg tablet every 12 hours. 3. Aspirin 81 mg p.o. daily. 4. Lipitor 40 mg p.o. at bedtime. 5. Bisoprolol 5 mg p.o. daily. 6. Doxycycline 100 mg p.o. b.i.d. 7. Ferrous sulfate 325 mg p.o. daily, multivitamin 1 tablet p.o. daily. 8. Omeprazole 40 mg p.o. daily. 9. Spironolactone 12.5 mg p.o. daily. 10. Tamsulosin 0.4 mg p.o. daily. 11. Travoprost 1 drop ophthalmic solution at bedtime. cc: Tha Traore MD
== END 2019-08-16 12:54 | disposition home health service (06) | DRG 388 ==
LOC: ED 00:22 → 4N 04:50 → SUATTDRO 04:50 → 4N 07:15
PROVIDERS: ATTEND Internal Medicine